=== PATIENT | male | born 1955 | race African-American/Black ===

== ENCOUNTER → 2020-04-10 | Emergency (ER) | payer MEDICARE, MEDICAID ==
[~2020-04-10] VITALS: Ht 190.5 cm; Wt 149.7 kg
[~2020-04-10] MED LIST: Adenosine 6mg/2ml Inj IV ONE; Digoxin 0.5mg/2ml Inj IVP ONE; Heparin 5000 units/ml inj SUBQ SCH; Miralax 17gm pkt ORAL PRN; Nephrovite tab (Rena-Vite) ORAL SCH; dilTIAZem Premix 125mg/125ml 125 ML IVPB ONE
[2020-04-10 16:30] VITALS: BP 114/72
--- NOTE | 2020-04-10 16:30 | NUR ---
ED Nurse Note: Pt brought into ED from hyperbaric chamber for tachycardia of 157. Pt has pacemaker and is a dialysis patient [facility]. Fistula shunt on L arm. Pt is alert adn ox4. Pt has swelling on lower legs and extreme dryness.
--- NOTE | 2020-04-10 16:31 | Emergency Room Report ---
History of Present Illness General Chief Complaint: Palpitations Source: Patient Present Illness HPI The patient presents with 1 week of palpitations. He was seen by his geospatial specialist today. He was noted to have an increased heart rate at that time. Patient denies any chest pain, dizziness, shortness of breath or weakness. He denies fevers or chills. He denies any other change to his medications recently. There is no increased pain in his lower extremities and he has chronic venous stasis disease there. He denies any bleeding or hemoptysis. There is no melena. There is no hematuria. The patient started Eliquis 2-1/2 weeks ago. Patient has history of dialysis Thursday, hypertension, congestive heart failure, and pacemaker placement and atrial fibrillation. No sore throat, nausea, vomiting, diarrhea, dysuria, abdominal pain, shortness of breath, depression, anxiety, visual changes, headache. 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 Patient History Past Medical History: see triage record Past Surgical History: pacemaker, other - Dialysis fistula left upper arm Social History: Denies: smoking Social History Narrative lives by himself Reviewed Nursing Documentation: PMH: Agreed; PSxH: Agreed Nursing Documentation-PMH Hx Cardiac Problems: Yes - CHF, A fib Hx Hypertension: Yes Hx Pacemaker: Yes Review of Systems All Other Systems: negative except mentioned in HPI Physical Exam Vital Signs Date Time Temp Pulse Resp B/P (MAP) Pulse Ox O2 Delivery O2 Flow Rate FiO2 04/10/20 15:58 98.2 147 20 108/68 (81) 99 Room Air Sp02 EP Interpretation: reviewed, normal General Appearance: no apparent distress, GCS 15, non-toxic, obese, Chronically Ill Head: normocephalic, other - Cochlear implant left Eyes: bilateral eye normal inspection, bilateral eye PERRL, bilateral eye EOMI ENT: moist mucus membranes, other - Cochlear implant left Neck: full range of motion, supple Respiratory: decreased breath sounds, crackles, other - Pacemaker right chest Cardiovascular #1: regular rate, rhythm, JVD, tachycardia, edema - 4+ brawny with chronic skin changes Cardiovascular #2: 2+ radial (R), 2+ radial (L) Gastrointestinal: non tender, soft, overweight Musculoskeletal: decreased range of motion, no calf tenderness, swelling Neurologic: oven builder III-XII nml as tested, DTRs symmetric, oriented x3, sensory intact, grossly normal - With bilateral leg weakness but able to stand and transfer Psychiatric: mood/affect normal Skin: warm/dry, other Procedures Critical Care Time Critical Care Time Total Critical Care Time: 120 min bedside evaluation and treatment excludes procedures (EKG, cardioversion). Reason for critical care: Atrial flutter, cardioversion, repeat evaluations, multiple consultations, AMA Possible complications: hypotension, hypertension, PA, shock, arrhythmias, metabolic acidosis, end organ damage, respiratory failure. Interventions: Transient decrease in heart block with adenosine during cardioversion procedure, chemical cardioversion with diltiazem drip and digoxin to atrial fibrillation, repeat evaluations, consultation with private physician and cancer genetics assistant Course: Patient presented with a heart rate of 145 with palpitations for 1 week. EKG with wide complex SVT but underlying etiology unclear. Considerations for administration of adenosine with caution as we had to review medications and possible history of Dbugu-Fukcnowrn-Krlcv. Patient placed on defibrillator and resuscitation team assembled during administration of adenosine. Patient tolerated well and the underlying rhythm was atrial flutter. The quality audit representative for the implanted defibrillator was contacted and the patient was discussed. Consultation with cancer genetics assistant led to starting diltiazem drip and administration of digoxin. During this time the patient was converted to atrial fibrillation with a rate of 88-96. The patient stated he had to go home. The patient was advised that he risks by going home. He was still on the diltiazem drip at that time point. Patient signed out AGAINST MEDICAL ADVICE. Consultations: nursing staff, EMS, private physician, cancer genetics assistant, RT, implanted defibrillator police crime scene technician, Performed by: Dr. Thompson Tolerated well condition = serious/AMA Cardioversion Cardioversion: Consent: Verbal Indication: SVT Response: Other - A fib Attempts: One Patient Tolerated: Well Complications: None Progress Patient in SVT - risk of arrhythmia explained to patient and defib pads applied. Home medications obtained from local pharmacy prior to attempt. RT present and team advised of risks of administration of adenosine (time out). After adenosine administration recording demonstrated brief delay that exposed flutter waves. The patient tolerated procedure well. Medical Decision Making Diagnostic Impression: Primary Impression: Atrial flutter Qualified Codes: I48.92 - Unspecified atrial flutter Additional Impressions: Chronic kidney disease with end stage renal failure on dialysis Thrombocytopenia ER Course Patient presents with palpitations and has rapid heart rates. Differential includes arrhythmia, ventricular tachycardia, supraventricular tachycardia, atrial fibrillation with poor ventricular control, acute myocardial infarction amongst others. The patient has been tolerating this rhythm for 1 week. He had dialysis yesterday. Treatment will be based on his EKG. He is not in distress at this time and does not need to have cardioversion at the moment. EKG with heart rate 145 regular. Right bundle branch block pattern no delta wave. Chest x-ray with cardiomegaly and reversal of flow not extreme. Labs with low white count. Platelets slightly low. Labs with evidence of chronic renal failure. Due to the possibility of SVT versus a flutter and regular A. fib adenosine is indicated. The patient has no history of Huaeh-Tgfnfrnml-Iolih. His medications were reviewed prior to administration. The patient was attached to defibrillator and monitor prior to this and respiratory was called to support. Adenosine 6 mg was given. The very short period of time that revealed the underlying rhythm is atrial flutter. The patient tolerated this well. He is refusing cardioversion at this time and therefore as he is stable this is not indicated. The requested cancer genetics assistant is being contacted. Contacted Dr. Tadeo directly. Discussed medical treatment and admission. Patient begun on diltiazem drip. In addition digoxin 1 dose was given to the patient. The patient converted to atrial fibrillation with a rate that was better controlled. The patient stated that he needed to go home. He had things that he had to take care of including making sure the battery on his cochlear implant was adequately charged. He was told that he risks by leaving and that he was only maintained stable by being on the diltiazem drip. He stated he did not care that it was more important to go home. Patient signed out AGAINST MEDICAL ADVICE. He was fully oriented and coherent and able to provide informed decision making at that time. Laboratory Tests Test 04/10/20 16:35 White Blood Count 2.9 K/UL (4.8-10.8) L Red Blood Count 4.38 M/UL (4.70-6.10) L Hemoglobin 12.1 G/DL (14.2-18.0) L Hematocrit 39.6 % (42.0-52.0) L Mean Corpuscular Volume 90 FL (80-99) Mean Corpuscular Hemoglobin 27.6 PG (27.0-31.0) Mean Corpuscular Hemoglobin Concent 30.5 G/DL (32.0-36.0) L Red Cell Distribution Width 16.9 % (11.6-14.8) H Platelet Count 92 K/UL (150-450) L Mean Platelet Volume 7.0 FL (6.5-10.1) Neutrophils (%) (Auto) % (45.0-75.0) Lymphocytes (%) (Auto) % (20.0-45.0) Monocytes (%) (Auto) % (1.0-10.0) Eosinophils (%) (Auto) % (0.0-3.0) Basophils (%) (Auto) % (0.0-2.0) Differential Total Cells Counted 100 Neutrophils % (Manual) 71 % (45-75) Lymphocytes % (Manual) 18 % (20-45) L Monocytes % (Manual) 11 % (1-10) H Eosinophils % (Manual) 0 % (0-3) Basophils % (Manual) 0 % (0-2) Band Neutrophils 0 % (0-8) Platelet Estimate Decreased L Platelet Morphology Normal Polychromasia 1+ Hypochromasia 1+ Anisocytosis 1+ Prothrombin Time 12.0 SEC (9.30-11.50) H Prothrombin Time INR 1.1 (0.9-1.1) Activated Partial Thromboplast Time 32 SEC (23-33) Sodium Level 132 MMOL/L (136-145) L Potassium Level 5.1 MMOL/L (3.5-5.1) Chloride Level 94 MMOL/L (98-107) L Carbon Dioxide Level 27 MMOL/L (21-32) Anion Gap 11 mmol/L (5-15) Blood Urea Nitrogen 63 mg/dL (7-18) H Creatinine 7.7 MG/DL (0.55-1.30) H Estimated Glomerular Filtration Rate 8.7 mL/min (>60) Glucose Level 127 MG/DL (74-106) H Calcium Level 8.3 MG/DL (8.5-10.1) L Total Bilirubin 0.5 MG/DL (0.2-1.0) Aspartate Amino Transferase (AST) 28 U/L (15-37) Alanine Aminotransferase (ALT) 15 U/L (12-78) Alkaline Phosphatase 155 U/L (46-116) H Total Creatine Kinase 69 U/L (26-308) Troponin I 0.015 ng/mL (0.000-0.056) C-Reactive Protein, Quantitative 14.6 mg/dL (0.00-0.90) H Pro-B-Type Natriuretic Peptide > 34921 pg/mL (0-125) H Total Protein 8.3 G/DL (6.4-8.2) H Albumin 2.7 G/DL (3.4-5.0) L Globulin 5.6 g/dL Albumin/Globulin Ratio 0.5 (1.0-2.7) L EKG Diagnostic Results Rate: tachycardiac Rhythm: other - SVT ST Segments: no acute changes Rhythm Strip Diag. Results EP Interpretation: yes Rhythm: no PVC's, no ectopy, other - Rapid atrial fibrillation versus SVT. Chest X-Ray Diagnostic Results Chest X-Ray Diagnostic Results : Chest X-Ray Ordered: Yes # of Views/Limited/Complete: 1 View Indication: Other EP Interpretation: Yes Interpretation: no effusion, no pneumothorax, other - cardiomegally, implanted defibrilator/pacer, pulm reversal flow Impression: Other Electronically Signed by: Electronically signed by Tolu Thompson MD Last Vital Signs Date Time Temp Pulse Resp B/P (MAP) Pulse Ox O2 Delivery O2 Flow Rate FiO2 04/10/20 20:23 98.0 98 22 102/68 96 Room Air Status: improved Disposition: AGAINST MEDICAL ADVICE Condition: Serious Referrals: Blu Smyth DPM (PCP) Tolu Thompson MD Apr 10, 2020 16:31
--- NOTE | 2020-04-10 16:31 | NUR ---
ED Nurse Note: Adenosine 6mg administered by Dr Thompson with 2 RNs present. Pt set up on crash cart EKG and recorded.
[2020-04-10 16:57] LABS: HEMATOCRIT 39.6 % (42.0-52.0); HEMOGLOBIN 12.1 G/DL (14.2-18.0); MEAN CORPUSCULAR VOLUME 90 FL (80-99); PLATELET COUNT 92 K/UL (150-450); RED BLOOD COUNT 4.38 M/UL (4.70-6.10); RED CELL DISTRIBUTION WIDTH 16.9 % (11.6-14.8); WHITE BLOOD COUNT 2.9 K/UL (4.8-10.8)
[2020-04-10 17:00] LABS: ANION GAP 11 mmol/L (5-15); BLOOD UREA NITROGEN 63 mg/dL (7-18); CALCIUM 8.3 MG/DL (8.5-10.1); CARBON DIOXIDE 27 MMOL/L (21-32); CHLORIDE 94 MMOL/L (98-107); CREATININE 7.7 MG/DL (0.55-1.30); POTASSIUM 5.1 MMOL/L (3.5-5.1); SODIUM 132 MMOL/L (136-145)
[2020-04-10 17:01] LABS: INR 1.1 (0.9-1.1)
[2020-04-10 17:10] LABS: ALANINE AMINOTRANSFERASE 15 U/L (12-78); ALBUMIN 2.7 G/DL (3.4-5.0); ALBUMIN/GLOBULIN RATIO 0.5 (1.0-2.7); ALKALINE PHOSPHATASE 155 U/L (46-116); ASPARTATE AMINO TRANSFERASE 28 U/L (15-37); BILIRUBIN,TOTAL 0.5 MG/DL (0.2-1.0); CREATINE KINASE 69 U/L (26-308)
--- NOTE | 2020-04-10 17:45 | NUR ---
ED Nurse Note: Cardizem drip started at 2.5 mL/hr per request of Dr Thompson. Dr states to follow protocol of increasing drip to 2.5 mL/hr if HR above 100.
--- NOTE | 2020-04-10 18:00 | NUR ---
ED Nurse Note: Pt refuses to have wound dressings taken off for pictures and states he wants to have it done inpatient. Pt has wounds bilateral lower legs.
--- NOTE | 2020-04-10 18:23 | Diagnostic Imaging Report ---
Indication: Reason For Exam: Chest pain Technique: Single AP view of the chest. Comparison: Chest radiograph dated 02/12/2008 Findings: Moderate to severe cardiomegaly. Interval placement of right approach triple lead ICD/pacemaker. There is interstitial edema. Streaky right infrahilar/basilar airspace opacity is noted. There is elevation of the right hemidiaphragm. No pneumothorax. No acute osseous abnormality. IMPRESSION: 1. Interstitial edema with streaky right infrahilar/basilar airspace opacity which could represent combination of edema and atelectasis but pneumonia should be excluded clinically. 2. Moderate to severe cardiomegaly.
[2020-04-10 19:00] VITALS: BP_SYST 100; BP_SYST 118; BP_DIAS 54; BP_DIAS 74
--- NOTE | 2020-04-10 19:05 | NUR ---
ED Nurse Note: Report received from [place] WHITE
--- NOTE | 2020-04-10 19:50 | NUR ---
ED Nurse Note: Patient verbalized that he wants to go home and sign AMA. Explained to the patient the need for him to stay in the hospital and be admitted. AMINA notified
--- NOTE | 2020-04-10 20:00 | NUR ---
ED Nurse Note: ERMD at bedside. Patient signed AMA even after ERMD explained the plan of care and treatment that is needed for the patient.
--- NOTE | 2020-04-10 20:21 | NUR ---
mAMA: SEE AMA FORM. Patient signed AMA. Patient ID and IV removed. Assisted patient to the waiting room via wheelchair to be picked by ambulance the patient contacted.
[2020-04-10 20:23] VITALS: BP 102/68
== END | disposition left against medical advice (07) ==
LOC: EMR 16:00 → ICU 17:20 → UNDOADMIN 17:20 → EDBEDREQ 17:34 → EDBEDREQSVC 17:34 → EDBEDREQ 19:19
DX: I48.92 Unspecified atrial flutter (principal); I13.2 Hypertensive heart and chronic kidney disease with heart failure and with stage 5 chronic kidney disease, or end stage renal disease; N18.6 End stage renal disease; I50.9 Heart failure, unspecified; Z95.0 Presence of cardiac pacemaker; Z79.01 Long term (current) use of anticoagulants; E66.9 Obesity, unspecified; I45.10 Unspecified right bundle-branch block; D69.6 Thrombocytopenia, unspecified; Z99.2 Dependence on renal dialysis; I51.7 Cardiomegaly
CPT/HCPCS: 36415; 71045; 80053; 82550; 83880; 84484; 85007; 85025; 85610; 85730; 86140; 87081; 92960; 93005; 96365; 96366; 96375; 99291; 99292; J0153; J1160; J3490; 99284